=== PATIENT | male | born 1945 | race Caucasian/White ===

== ENCOUNTER → 2017-10-07 | Day surgery (SDC) | payer MEDICARE, OTHER ==
--- NOTE | 2017-10-06 14:52 | Diagnostic Imaging Report ---
PROCEDURE: Frontal and lateral views of the chest. COMPARISON: None. INDICATIONS: PRE-OPERATIVE CHEST X-RAY FOR KIDNEY SX (ESWL) FINDINGS: Lines/tubes: None. Lungs: The lungs are well inflated. There is no evidence of pneumonia or pulmonary edema. Linear subsegmental atelectasis at the lung bases. Pleura: There is no pleural effusion or pneumothorax. Heart and mediastinum: The cardiomediastinal silhouette is unremarkable. Bones: No acute bony abnormality. IMPRESSION: No evidence of pneumonia or pulmonary edema. Dictated by: BERNADINE MELARA M.D. on 10/06/2017 at 10:05 Electronically approved by: BERNADINE MELARA M.D. on 10/06/2017 at 10:05
[~2017-10-07] MED LIST: ASPIRIN81 MG; ATORVASTATIN CA10 MG PO; B COMPLEX1 EACH; CEFAZOLIN SOD 1 GM VIAL ONE; CEFTRIAXONE SOD 1 GM VIAL ONE; CLOPIDOGREL75 MG PO; D-20002000 UNIT PO; DEXAMETHASONE SOD PHOS INJ 4 MG/ML VIAL ONE; DITROPAN XL5 MG PO; FISH OIL 1,0001 EAC3; LIDOCAINE HCL 2% LOCAL INJ 5 ML SDV VIAL INJ ONE; LISINOPRIL10 MG PO; MEPERIDINE HCL INJ 50 MG/ML INJ ONE; MORPHINE SULFATE 2 MG/ML SYR ONE; NORVASC5 MG PO; ONDANSETRON HCL INJ 2 MG/ML VIAL ONE; PRILOSEC10 M1; PROPOFOL IV EMULSION 10 MG/ML 20 ML VIAL ONE; SEVOFLURANE INHAL SOLN 250 ML PEN BTL ONE; TYLENOL WITH C1 EACH PO; ZOFRAN ODT4 MG
--- NOTE | 2017-10-07 10:44 | Diagnostic Imaging Report ---
PROCEDURE:X-RAY ABDOMEN - KUB COMPARISON:CT abdomen and pelvis 09/26/2017. INDICATIONS:BILATERAL STONES, PRE OPERATIVE KUB SURGERY FINDINGS: Interval placement of a left internal ureteral stent. The proximal locking loop projects over the renal pelvis. The distal locking loop projects over the midline low pelvis. Stable position of 1 cm proximal left ureteral calculus and nonobstructing 4-5 mm left renal calculus relative to the comparison CT. Additionally, stable appearance of 1.1 cm nonobstructing right lower pole renal calculus. Multiple pelvic phleboliths. Bowel gas pattern is nonobstructive with gas and fecal material noted throughout the large bowel. Regional skeletal structures are intact with multilevel degenerative disc changes of the lumbar spine. Linear fibrotic change or subsegmental atelectasis in the right lung base. CONCLUSION: Stable position of bilateral renal and proximal left ureteral calculi status post left internal ureteral stent placement. Dictated by: Toni Alan M.D. on 10/07/2017 at 10:49 Electronically approved by: Toni Alan M.D. on 10/07/2017 at 10:49
--- NOTE | 2017-11-19 00:46 | Operative Report ---
DATE OF PROCEDURE: October 07, 2017 PREOPERATIVE DIAGNOSIS: Left ureterolithiasis. POSTOPERATIVE DIAGNOSIS: Left ureterolithiasis. PROCEDURES PERFORMED 1. Staged left-sided extracorporeal shockwave lithotripsy (separately performed for the left-sided ureteral stone). 2. Supervision of fluoroscopy. No radiologist present. ANESTHESIA: General. COMPLICATION: None. CLINICAL SUMMARY: Estuardo Azevedo is a 71-year-old man, who has an indwelling ureteral stent and residual stone burden. He was brought for the above procedure. He is aware of the risks of bleeding, infection, injury to adjacent structures, need for additional procedures, and elected to proceed. OPERATIVE PROCEDURE IN DETAIL: Informed consent was verified. Estuardo Azevedo was properly identified, taken to operating room, placed on the lithotripsy table in supine position. Anesthesia was uneventfully begun. The patient's left proximal 3 ureteral stones were localized with biplanar fluoroscopy, total of 3000 shocks were delivered with some degree of fragmentation noted. The patient was then uneventfully reversed from anesthesia, taken to recovery room in stable condition. There were no complications during the procedure. He tolerated the procedure well. Plans will be to return to the operating room to perform a left ureteroscopy with Holmium laser lithotripsy and change of the stent and as well as perform a right ESWL with right stent placement. Job#: [id number] CQ
== END | disposition home or self-care (01) ==
LOC: OR 07:29
PROVIDERS: ATTEND Urology
DX: N20.1 Calculus of ureter (principal); N13.30 Unspecified hydronephrosis; Z96.0 Presence of urogenital implants; I25.2 Old myocardial infarction; I25.10 Atherosclerotic heart disease of native coronary artery without angina pectoris; I10 Essential (primary) hypertension; Z95.1 Presence of aortocoronary bypass graft; Z01.818 Encounter for other preprocedural examination
CPT/HCPCS: 50590; 71046; 74018; J0696; J1100; J2001; J2175; J2270; J2405; J0690

== ENCOUNTER → 2017-10-21 | Outpatient (CLI) | payer MEDICARE, OTHER ==
[~2017-10-21] MED LIST changes: -CEFAZOLIN SOD 1 GM VIAL ONE; -CEFTRIAXONE SOD 1 GM VIAL ONE; -DEXAMETHASONE SOD PHOS INJ 4 MG/ML VIAL ONE; -LIDOCAINE HCL 2% LOCAL INJ 5 ML SDV VIAL INJ ONE; -MEPERIDINE HCL INJ 50 MG/ML INJ ONE; -MORPHINE SULFATE 2 MG/ML SYR ONE; -ONDANSETRON HCL INJ 2 MG/ML VIAL ONE; -PROPOFOL IV EMULSION 10 MG/ML 20 ML VIAL ONE; -SEVOFLURANE INHAL SOLN 250 ML PEN BTL ONE
--- NOTE | 2017-10-21 11:52 | Diagnostic Imaging Report ---
PROCEDURE:X-RAY ABDOMEN - KUB COMPARISON:KUB dated 10/07/17 INDICATIONS:LEFT SIDED PAIN, S/P RENAL STENT X 2 WEEKS AGO FINDINGS: Nonobstructive bowel gas pattern. No signs of pneumoperitoneum. Unchanged 1 cm calcification overlying right renal inferior pole. 6 mm calcification overlying left renal shadow, previously 4 mm. Unchanged left double-J nephroureteral stent in place. Calcification abutting the proximal to mid left ureteral stent measures 1.0 cm, previously 1 cm. Unchanged left pelvic phleboliths. No acute osseous abnormality. Limited visualized lung bases are unremarkable. CONCLUSION: Unchanged right nephrolithiasis. Slight interval increase in size of left renal and ureteral calculi when compared to prior KUB. Stable left nephroureteral stent in place. Dictated by: Sung Liriano M.D. on 10/21/2017 at 11:57 Electronically approved by: Sung Liriano M.D. on 10/21/2017 at 11:57
== END ==
LOC: RAD 11:09
PROVIDERS: ATTEND Urology
DX: N20.0 Calculus of kidney (principal)
CPT/HCPCS: 74018

== ENCOUNTER → 2017-10-30 | Day surgery (SDC) | payer MEDICARE, OTHER ==
[~2017-10-30] MED LIST changes: +CEFTRIAXONE SOD 1 GM VIAL ONE; +DESFLURANE 240 ML BTL INH ONE; +DEXAMETHASONE SOD PHOS INJ 4 MG/ML VIAL ONE; +FENTANYL CITRATE/PF 100MCG/2 ML INJ ONE; +IOPAMIDOL 300MG/ML 50ML INFUS..BTL IV ONE; +LIDOCAINE HCL 2% LOCAL INJ 5 ML SDV VIAL INJ ONE; +MIDAZOLAM HCL 2 MG/2 ML VIAL ONE; +ONDANSETRON HCL INJ 2 MG/ML VIAL ONE; +PROPOFOL IV EMULSION 10 MG/ML 20 ML VIAL ONE
--- NOTE | 2017-10-30 11:24 | Diagnostic Imaging Report ---
PROCEDURE:X-RAY ABDOMEN - KUB COMPARISON:KUB 10/21/2017 INDICATIONS:BILATERAL KIDNEY STONES FINDINGS: Bilateral renal and left ureteral stones appear unchanged, including a 1 cm calcification overlying the right lower pole kidney, 6 mm calcification overlying the left kidney, and 1 cm calcification overlying the left mid ureter. There is a left internal ureteral stent. Unchanged pelvic phleboliths. There is a non-obstructed bowel-gas pattern. There are no acute osseous abnormalities CONCLUSION: Bilateral renal and left ureteral stones appear unchanged. Stable left internal ureteral stent. Dictated by: BERNADINE MELARA M.D. on 10/30/2017 at 7:57 Electronically approved by: BERNADINE MLEARA M.D. on 10/30/2017 at 7:57
--- NOTE | 2017-12-22 11:29 | Operative Report ---
DATE OF PROCEDURE: October 30, 2017 PREOPERATIVE DIAGNOSES 1. Right nephrolithiasis. 2. Left ureterolithiasis. 3. Left nephrolithiasis. 4. Left indwelling ureteral stent. POSTOPERATIVE DIAGNOSES 1. Right nephrolithiasis. 2. Left ureterolithiasis. 3. Left nephrolithiasis. 4. Left indwelling ureteral stent. PROCEDURES PERFORMED: Note these are all staged procedures as part of multistage, multistep process of managing the patient's urolithiasis. 1. Right-sided extracorporeal shock-wave lithotripsy (separate procedure performed for the right nephrolithiasis). 2. Cystourethroscopy with complicated removal of left indwelling ureteral stent (separate procedure performed with separate scope for the diagnosis of stent). 3. Left semirigid ureteroscopy with holmium laser lithotripsy and placement of stent (separate procedure performed for the diagnosis of left ureterolithiasis done with a semirigid ureteroscope). 4. Left ureteropyeloscopy with holmium laser lithotripsy of left renal stone (separate procedure performed with a flexible ureteroscope for the left nephrolithiasis). 5. Radiological services for supervision and interpretation of ureteroscopy. 6. Interpretation of retrograde ureteropyelography. ANESTHESIA: General. COMPLICATIONS: None. CLINICAL SUMMARY: Estuardo Azevedo is a 71-year-old man with left ureteral stent and bilateral nephrolithiasis who is brought for another staged procedure. He is aware of the risks of bleeding, infection, injury to adjacent structures, need for additional procedures and elected to proceed. OPERATIVE PROCEDURE IN DETAIL: Informed consent was verified. Estuardo Azevedo was properly identified, taken to the operating room and placed on the lithotripsy table in the supine position. Anesthesia was uneventfully begun. The patient's right nephrolithiasis was localized with biplanar fluoroscopy. Total of 3000 shocks were delivered to the 10-mm stone with minimal amount of fragmentation noted. The patient was carefully and gently repositioned in the dorsal lithotomy position with all pressure points well padded. His genitalia were prepared and draped in the usual sterile fashion. The 22.5-Lux[place]bourgish cystourethroscope sheath with visual obturator in place was atraumatically inserted into the patient's urethra. It was guided down the unremarkable distal urethra, past a normal sphincteric region, through the prostate bed which was significant for trilobar prostatic hypertrophy with kissing lateral lobes and a median lobe that was visually obstructing. We entered the patient's bladder where panendoscopy revealed no suspicious mucosal lesions. There was a stent emerging from the left ureteral orifice. A guidewire was then placed alongside the stent and guided to the level of the patient's kidney. The stent was then grasped, completely removed and discarded. A semirigid ureteroscope was then placed alongside the guidewire up into the left ureter. We identified a large stone. Multiple stones were identified. Holmium laser lithotripsy was performed to pulverize all of these stones to smaller fragments. Multiple passes were then made with a basket to free all of the significantly sized stones from the left ureter. Over a secondary guidewire, a flexible ureteroscope was then placed. It was guided to the level of the patient's kidney. We encountered additional stones there. We performed holmium laser lithotripsy of the intrarenal stones to pulverize them into smaller fragments that should all be passable. With cystoscopic and fluoroscopic guidance, a left-sided indwelling ureteral stent was then placed. It was coiled in the patient's kidney as well as in the patient's bladder. The retaining suture was cut short. Interpretation of retrograde ureteropyelography: Contrast was instilled in a retrograde fashion. On the left-hand side, there was chronic fullness of the left-sided collecting system. Multiple filling defects corresponded to the stones that were treated. The stent was in good position, coiled in the patient's kidney as well as in the patient's bladder at the end of the case. The patient's bladder was then drained. The cystoscope was withdrawn. Digital rectal examination revealed a 35-g prostate with diffuse nodularity. There was a 5-mm nodule at the left medial apical region. In the future, we will need to follow up on this finding once we have managed the patient's urolithiasis to completion. Job#: [id number]
== END | disposition home or self-care (01) ==
LOC: OR 06:46
PROVIDERS: ATTEND Urology
DX: N20.0 Calculus of kidney (principal); N20.1 Calculus of ureter; Z46.6 Encounter for fitting and adjustment of urinary device; N40.1 Benign prostatic hyperplasia with lower urinary tract symptoms; N13.8 Other obstructive and reflux uropathy; N40.2 Nodular prostate without lower urinary tract symptoms; I25.10 Atherosclerotic heart disease of native coronary artery without angina pectoris; I25.2 Old myocardial infarction; I10 Essential (primary) hypertension; G47.33 Obstructive sleep apnea (adult) (pediatric); K21.9 Gastro-esophageal reflux disease without esophagitis; F41.9 Anxiety disorder, unspecified; Z79.82 Long term (current) use of aspirin; Z79.02 Long term (current) use of antithrombotics/antiplatelets; Z95.5 Presence of coronary angioplasty implant and graft
CPT/HCPCS: 50590; 52356; 74018; 88300; C1758; C2617; J0696; J1100; J2001; J2250; J2405; Q9967

== ENCOUNTER → 2017-11-20 | Day surgery (SDC) | payer MEDICARE, OTHER ==
[2017-11-19 10:45] LABS: BASOPHILS # (AUTO) 0.1 (0.0-0.1); BASOPHILS % 0.8 % (0.0-1.0); EOSINOPHILS # (AUTO) 0.8 (0.0-0.4); EOSINOPHILS % 7.7 % (0.0-6.0); HEMATOCRIT 42.4 % (38.2-49.6); HEMOGLOBIN 14.1 g/dL (14.0-18.0); LYMPHOCYTES # (AUTO) 1.9 (1.0-3.2); LYMPHOCYTES % 19.9 % (18.0-39.1); MEAN CORPUSCULAR HEMOGLOBIN 32.2 pg (28-32); MEAN CORPUSCULAR HGB CONC 33.3 g/dL (31-35); MEAN CORPUSCULAR VOLUME 96.8 fL (81-99); MONOCYTES # (AUTO) 0.8 (0.2-0.8); MONOCYTES % 8.4 % (4.4-11.3); NEUTROPHILS # (AUTO) 6.1 (2.1-6.9); PLATELET COUNT 221 x10e3/uL (140-360); RED BLOOD COUNT 4.38 x10e6/uL (4.3-5.7); RED CELL DISTRIBUTION WIDTH 12.3 % (11.7-14.4)
[~2017-11-20] MED LIST changes: +HYDROMORPHONE 2MG/ML 2 MG/ML ML ONE; -LIDOCAINE HCL 2% LOCAL INJ 5 ML SDV VIAL INJ ONE; +MORPHINE SULFATE 2 MG/ML SYR ONE; -PRILOSEC10 M1; +PRILOSEC10 M1 PO
--- NOTE | 2017-11-20 09:15 | Diagnostic Imaging Report ---
PROCEDURE:X-RAY ABDOMEN - KUB COMPARISON:KUB 10/30/17. INDICATIONS:PRE-OPERATIVE CHEST/ESWL FINDINGS: Bilateral renal stones are noted including a 1 cm calcification overlying the right lower pole kidney and 6 mm calcification overlying the left kidney. Bowel gas partially obscures visualization of the left kidney. A previously noted 1 cm calcification overlying the left mid ureter is no longer visualized. There is a left double J internal ureteral stent with similar appearance. Unchanged pelvic phleboliths. There is a non-obstructive bowel-gas pattern. There are no acute osseous abnormalities. CONCLUSION: Bilateral renal stones appear unchanged. Previously noted 1 cm calcification overlying the left mid ureter is no longer visualized. Similar appearance of left internal ureteral stent. Dictated by: BERNADINE MELARA M.D. on 11/20/2017 at 8:22 Electronically approved by: BERNADINE MELARA M.D. on 11/20/2017 at 8:22
[2017-11-20 12:25] VITALS: BP 146/91
--- NOTE | 2018-01-14 01:11 | Operative Report ---
DATE OF PROCEDURE: November 20, 2017 PREOPERATIVE DIAGNOSES 1. Right nephrolithiasis. 2. Left ureterolithiasis. 3. Left nephrolithiasis. POSTOPERATIVE DIAGNOSES 1. Right nephrolithiasis. 2. Left ureterolithiasis. 3. Left nephrolithiasis. OPERATIONS PERFORMED: Note these are all staged procedures as part of multistage, multistep process of managing the patient's urolithiasis. 1. Right-sided extracorporeal shock wave lithotripsy (separate procedure performed for the right nephrolithiasis). 2. Cystourethroscopy with complicated removal of right indwelling ureteral stent (separate procedure performed for the diagnosis of stent done with separate scope). 3. Left ureteroscopy with stone manipulation and extraction (separately procedure performed for the nephrolithiasis on the left hand side). 4. Left ureteroscopy with stone manipulation (separately procedure performed for the stone debris within the left ureter). 5. Urological services for supervision and interpretation of ureteroscopy. 6. Interpretation of retrograde ureteropyelography. ANESTHESIA: General. COMPLICATIONS: None. CLINICAL SUMMARY: Estuardo Azevedo is a 71-year-old man who underwent left-sided stone treatment and stent placement. Patient is brought to the operating room today to treat his right-sided stone , hopefully render him stone-free and stent-free on the left hand side. He is aware of the risks of bleeding, infection, injury to adjacent structures, need for additional procedures, and elected to proceed. OPERATIVE PROCEDURE IN DETAIL: Informed consent was verified. Estuardo Azevedo was properly identified, taken to the operating room, placed on the lithotripsy table in supine position. Anesthesia was uneventfully begun. The patient's right lower pole nephrolithiasis was localized on a biplanar fluoroscopy and a total of 3000 shocks were delivered with minimal fragmentation of this large stone. The patient was then carefully and gently re-positioned in the dorsal lithotomy position with all pressure points well padded. His genitalia were prepared and draped in the usual sterile fashion. The 22.5-[place] cystoscope sheath with a visual obturator in place was atraumatically inserted into the patient's urethra. It was guided down the unremarkable urethra through the normal sphincteric region, through the prostate bed, which was significant for trilobar prostatic hypertrophy with visual obstruction. We entered the patient's bladder which exhibited trabeculations and a stent emerging from the left ureteral orifice. A guidewire was then placed alongside the stent and guided at the level of the patient's kidney. The stent was then grasped, completely removed, and then discarded. Semirigid ureteroscopy was then performed. We passed the ureteroscope alongside the guidewire into the left ureter. We identified in the left ureter sand. This sand was irrigated to loosen it from the mucosa so that it can pass. There were no significantly sized stone fragments noted within the ureter. We then utilized the guidewire to bring the flexile urethroscope into the patient's kidney where panendoscopy revealed sand and some blood clots, but we evacuated these blood clots with irrigation via the ureteroscope. Once we got rid of all the blood clots from within the left kidney, careful panendoscopy revealed Yonatan plaques, but only fine sand was there. There were no significantly sized stones. We irrigated all the sand to loosen it and thus manipulated the kidney stones as well on the left hand side. We carefully re-examined the ureter and irrigated as we exited revealing that only fine sand remained, but no significantly sized stones. We drained the patient's bladder. Digital rectal examination revealed a 40-g prostate with nodularity in the midline from the apex to the base. There were no suspicious nodules that could be identified and the significance of such a finding is unclear at this time, but will be followed up on future followup once we get the patient's stones managed. The patient was then uneventfully reversed from anesthesia and taken to the recovery room in stable condition. There were no complications of the procedure. He tolerated the procedure well. Plans will be to bring the patient back to the operating room electively for another right ESWL. Interpretation of retrograde ureteropyelography: Contrast was instilled in retrograde fashion on the left hand side. There was chronic-appearing fullness of the upper collecting system. There were no obvious filling defects. Unobstructed drainage was observed fluoroscopically. Job#: [id number]
== END | disposition home or self-care (01) ==
LOC: OR 06:47
PROVIDERS: ATTEND Urology
DX: N20.0 Calculus of kidney (principal); N20.1 Calculus of ureter; Z46.6 Encounter for fitting and adjustment of urinary device; N40.1 Benign prostatic hyperplasia with lower urinary tract symptoms; N13.8 Other obstructive and reflux uropathy; N32.89 Other specified disorders of bladder; N28.89 Other specified disorders of kidney and ureter; G47.33 Obstructive sleep apnea (adult) (pediatric); K21.9 Gastro-esophageal reflux disease without esophagitis; I10 Essential (primary) hypertension; I25.10 Atherosclerotic heart disease of native coronary artery without angina pectoris; I25.2 Old myocardial infarction; Z01.812 Encounter for preprocedural laboratory examination; Z79.82 Long term (current) use of aspirin
CPT/HCPCS: 36415; 50590; 52352; 74018; 85025; J0696; J1100; J1170; J2250; J2270; J2405; Q9967

== ENCOUNTER 2017-12-25 07:43 | Inpatient (IN) | payer MEDICARE, OTHER ==
[2017-12-24 10:51] LABS: BASOPHILS # (AUTO) 0.1 (0.0-0.1); BASOPHILS % 0.7 % (0.0-1.0); EOSINOPHILS # (AUTO) 0.5 (0.0-0.4); HEMATOCRIT 43.2 % (38.2-49.6); HEMOGLOBIN 14.8 g/dL (14.0-18.0); LYMPHOCYTES # (AUTO) 1.8 (1.0-3.2); LYMPHOCYTES % 18.4 % (18.0-39.1); MEAN CORPUSCULAR HEMOGLOBIN 32.2 pg (28-32); MEAN CORPUSCULAR HGB CONC 34.3 g/dL (31-35); MEAN CORPUSCULAR VOLUME 93.9 fL (81-99); MONOCYTES # (AUTO) 0.9 (0.2-0.8); NEUTROPHILS # (AUTO) 6.6 (2.1-6.9); NEUTROPHILS % 66.7 % (38.7-80.0); PLATELET COUNT 223 x10e3/uL (140-360); RED CELL DISTRIBUTION WIDTH 11.9 % (11.7-14.4)
[~2017-12-25] VITALS: Ht 182.9 cm; Wt 110.7 kg
[~2017-12-25 07:43] MED LIST changes: -CEFTRIAXONE SOD 1 GM VIAL ONE; -DESFLURANE 240 ML BTL INH ONE; -DEXAMETHASONE SOD PHOS INJ 4 MG/ML VIAL ONE; -FENTANYL CITRATE/PF 100MCG/2 ML INJ ONE; -HYDROMORPHONE 2MG/ML 2 MG/ML ML ONE; -IOPAMIDOL 300MG/ML 50ML INFUS..BTL IV ONE; -MIDAZOLAM HCL 2 MG/2 ML VIAL ONE; -MORPHINE SULFATE 2 MG/ML SYR ONE; -ONDANSETRON HCL INJ 2 MG/ML VIAL ONE; -PROPOFOL IV EMULSION 10 MG/ML 20 ML VIAL ONE
[2017-12-25] MEDS ORDERED: CEFTRIAXONE SOD 1 GM VIAL ONE (08:37)
[2017-12-25] MEDS ORDERED: FENTANYL CITRATE/PF 100MCG/2 ML INJ ONE ×2 (11:07→17:49)
[2017-12-25] MEDS ORDERED: MORPHINE SULFATE 2 MG/ML SYR ONE ×4 (11:24→17:52)
[2017-12-25] MEDS ORDERED: HYDROMORPHONE 2MG/ML 2 MG/ML ML ONE ×3 (11:32→19:11)
[2017-12-25] MEDS ORDERED: KETOROLAC TROMETHAMINE 30 MG/ML VIAL ONE ×2 (12:08→12:20)
[2017-12-25] MEDS ORDERED: ONDANSETRON HCL INJ 2 MG/ML VIAL ONE (12:35)
--- NOTE | 2017-12-25 12:37 | Diagnostic Imaging Report ---
PROCEDURE:X-RAY ABDOMEN - KUB COMPARISON:KUB 11/20/2017. INDICATIONS:PRE OPERATIVE KUB FOR KIDNEY STONES FINDINGS: Bilateral renal stones are unchanged including a 1.1 cm calcification overlying the right lower pole kidney and 6 mm calcification overlying the left kidney. Unchanged pelvic phleboliths. Interval removal of left internal ureteral stent. There is a nonobstructive bowel-gas pattern. There are no acute osseous abnormalities. CONCLUSION: Bilateral renal stones appear unchanged. Interval removal of left internal ureteral stent. Dictated by: BERNADINE MELARA M.D. on 12/25/2017 at 9:11 Electronically approved by: BERNADINE MELARA M.D. on 12/25/2017 at 9:11
[2017-12-25] MEDS ORDERED: ACETAMINOPHEN/CODEINE 300MG - 30MG TAB ONE (17:39)
[2017-12-25] MEDS ORDERED: MIDAZOLAM HCL 2 MG/2 ML VIAL ONE (17:49)
[2017-12-25] MEDS ORDERED: PROMETHAZINE HCL (IM) 25 MG/ML VIAL ONE (17:52)
[2017-12-25] MEDS ORDERED: HYDROMORPHONE 0.2MG/ML-SOD CHL 30ML PCA SYRINGE IV PRN ×2 (18:45→20:00)
[2017-12-25] MEDS ORDERED: NALOXONE HCL INJ 0.4 MG/ML AMP IV PRN (18:45)
[2017-12-25] MEDS ORDERED: SODIUM CHLORIDE 0.9% 1000ML 1,000 ML ONE (19:24)
[2017-12-25] MEDS ORDERED: HYDROMORPHONE 0.2MG/ML-SOD CHL 30ML PCA SYRINGE IV ONE (20:11)
[2017-12-25 20:30] VITALS: BP 107/89
[2017-12-25 20:45] VITALS: BP 132/82
[2017-12-25] MEDS: SODIUM CHLORIDE 0.9% 1000ML 1,000 ML IV SCH (21:12)
[2017-12-25 21:15] LABS: BASOPHILS % 0.1 % (0.0-1.0); HEMATOCRIT 34.8 % (38.2-49.6); HEMOGLOBIN 11.8 g/dL (14.0-18.0); LYMPHOCYTES # (AUTO) 0.6 (1.0-3.2); LYMPHOCYTES % 3.7 % (18.0-39.1); MEAN CORPUSCULAR HGB CONC 33.9 g/dL (31-35); MEAN CORPUSCULAR VOLUME 97.2 fL (81-99); MONOCYTES # (AUTO) 0.7 (0.2-0.8); MONOCYTES % 4.1 % (4.4-11.3); NEUTROPHILS # (AUTO) 16.1 (2.1-6.9); NEUTROPHILS % 91.8 % (38.7-80.0); PLATELET COUNT 202 x10e3/uL (140-360); RED BLOOD COUNT 3.58 x10e6/uL (4.3-5.7); RED CELL DISTRIBUTION WIDTH 11.9 % (11.7-14.4)
[2017-12-25 21:35] LABS: ANION GAP 14.8 mmol/L (8-16); CALCIUM 9.7 mg/dL (8.4-10.2); CREATININE, SERUM 1.5 mg/dL (0.72-1.25); POTASSIUM 4.8 mmol/L (3.5-5.1)
[2017-12-25 23:15] VITALS: BP 141/74
[2017-12-26] VITALS (9 sets, daily range): BP systolic 109–136; BP diastolic 69–83
[2017-12-26 05:32] LABS: BASOPHILS % 0.2 % (0.0-1.0); HEMATOCRIT 29.4 % (38.2-49.6); HEMOGLOBIN 9.7 g/dL (14.0-18.0); LYMPHOCYTES # (AUTO) 1.2 (1.0-3.2); LYMPHOCYTES % 7.4 % (18.0-39.1); MEAN CORPUSCULAR HEMOGLOBIN 32.6 pg (28-32); MEAN CORPUSCULAR VOLUME 98.7 fL (81-99); MONOCYTES # (AUTO) 1.3 (0.2-0.8); MONOCYTES % 7.9 % (4.4-11.3); NEUTROPHILS # (AUTO) 14.1 (2.1-6.9); NEUTROPHILS % 83.8 % (38.7-80.0); PLATELET COUNT 213 x10e3/uL (140-360); RED BLOOD COUNT 2.98 x10e6/uL (4.3-5.7)
[2017-12-26 05:54] LABS: ANION GAP 12.2 mmol/L (8-16); CALCIUM 9.8 mg/dL (8.4-10.2); CREATININE, SERUM 1.74 mg/dL (0.72-1.25); POTASSIUM 5.2 mmol/L (3.5-5.1)
[2017-12-26] MEDS ORDERED: ONDANSETRON HCL INJ 2 MG/ML VIAL IV PRN (07:30)
[2017-12-26] MEDS: SODIUM CHLORIDE 0.9% 1000ML 1,000 ML IV SCH ×2 (08:23→15:14)
[2017-12-26] MEDS ORDERED: CHLORPROMAZINE HCL 25 MG TAB PO PRN (10:30)
[2017-12-26] MEDS ORDERED: BISACODYL 10 MG SUPP PR PRN (10:30)
[2017-12-26] MEDS ORDERED: CEFTRIAXONE SOD 1 GM/NS 50 ML 50 ML IV SCH (10:30)
[2017-12-26 10:45] LABS: CLARITY,URINE HAZY (CLEAR); COLOR,URINE YELLOW (YELLOW); LEUKOCYTE ESTERASE ,URINE NEGATIVE (NEGATIVE); NITRITE,URINE NEGATIVE (NEGATIVE); PROTEIN,URINE DIPSTICK 2+ (NEGATIVE)
[2017-12-26 10:46] LABS: BILIRUBIN,URINE NEGATIVE (NEGATIVE); KETONES,URINE NEGATIVE (NEGATIVE); URINE UROBILINOGEN 0.2 mg/dL (0.2 - 1)
[2017-12-26] MEDS: SENNOSIDES 8.6 MG TAB PO SCH ×2 (10:57→17:05)
[2017-12-26] MEDS: AMLODIPINE BESYLATE 5 MG TAB PO SCH (10:57)
[2017-12-26] MEDS: CEFTRIAXONE SOD 1 GM VIAL IV SCH ×2 (10:57→21:35)
[2017-12-26 11:06] LABS: BACTERIA,URINE FEW /HPF; RBC,URINE >50 /HPF (0-5); WBC,URINE (MAN) 21-50 /HPF (0-5)
[2017-12-26 11:07] LABS: EPITHELIAL CELLS,URINE FEW /LPF; MUCUS,URINE FEW (RARE)
--- NOTE | 2017-12-26 11:59 | History and Physical ---
CHIEF COMPLAINT: Intractable lower back pain and flank pain after lithotripsy. HISTORY: Patient is a 72-year-old male with multiple stones, a chronic problem for sometime. The patient has left ureteral stent as well. The patient underwent lithotripsy with the ESWL. After the procedure was done, the patient complained of increasing pain intractably and the patient was placed in observation. He had lithotripsy on the right kidney stone. The patient was stable. He is on [employer] pump at this time. He is still having some pain to the right flank area. Over the night, the patient was not able to urinate. He has some obstruction; therefore, a Larios catheter was placed. His white cell count is elevated, WBC of 17,500. The patient is otherwise stable at this time. PAST MEDICAL HISTORY 1. Kidney stone bilaterally, worse on the right. 2. The patient is now status post ESWL stone management. 3. Left ureteral stent removal. 4. Hypertension. 5. Dyslipidemia. 6. Osteoarthritis. 7. Reflux history. 8. Coronary artery disease with no PCI or stent. SOCIAL HISTORY: The patient does not smoke. He is a social drinker. ALLERGIES: NO KNOWN ALLERGIES. HOME MEDICATIONS: He was taking Lipitor, Plavix, lisinopril, omeprazole, vitamin D, and Norvasc. PHYSICAL EXAMINATION VITAL SIGNS: Temperature is 97, blood pressure 124/73, pulse rate is 77, and respirations 18. GENERAL: The patient is not in acute distress. He is awake. HEENT: Normocephalic and atraumatic. Sclerae are anicteric. NECK: Supple grossly. PULMONARY: Clear. CARDIOVASCULAR: Regular rate and rhythm. ABDOMEN: Soft, otherwise unremarkable. EXTREMITIES: No cyanosis or edema. NEUROLOGIC: No focal deficit. Larios in place. LABORATORY: Sodium 141, potassium 5.2, chloride 110, bicarb 24, BUN 27, and creatinine 1.7. Glucose 132. WBC is 16.8, hemoglobin 9.7, hematocrit 29.4, and platelet 213,000. IMPRESSION 1. Postoperative leukocytosis. 2. Status post ESWL, stone management to the right kidney stone. 3. Status post left urethral stent removal. PLAN: We will start the patient on Rocephin 1 g q.12. Continue with the pain management. Stool softener with stool management. Home medications resumed. IV fluids for now. We will see how the patient does. We will repeat lab work in the morning to monitor the white cell count elevation. The white cell count elevation could be secondary to postoperative stress reactive versus infection. We will obtain a urinalysis with culture as well. Job#: [id number] DANA
[2017-12-26] MEDS ORDERED: BISACODYL 10 MG SUPP PR NR ×2 (12:45→13:15)
--- NOTE | 2017-12-26 15:30 | Diagnostic Imaging Report ---
EXAM: CT Abdomen and Pelvis WITHOUT contrast INDICATION: \S\abdominal pain s/p eswl \[id number] \S\[id number] COMPARISON: CT 09/26/2017 TECHNIQUE: Abdomen and pelvis were scanned utilizing a multidetector helical scanner from the lung base to the pubic symphysis without administration of IV contrast. Absence of intravenous contrast decreases sensitivity for detection of focal lesions and vascular pathology. Coronal and sagittal reformations were obtained. Routine protocol was performed. IV CONTRAST: None ORAL CONTRAST: Water COMPLICATIONS: None RADIATION DOSE: Total DLP: 919.8 mGy*cm Estimated effective dose: (DLP x 0.015 x size factor) mSv CTDIvol has been reviewed. It is below the limits set by the Radiation Protocol Committee (RPC). FINDINGS: LINES and TUBES: Larios catheter within the bladder. LOWER THORAX: Small right pleural effusion. Dependent atelectasis bilaterally. Coronary artery calcifications. HEPATOBILIARY: No focal hepatic lesions. No biliary ductal dilation. GALLBLADDER: No radio-opaque stones or sludge. No wall thickening. SPLEEN: No splenomegaly. PANCREAS: Atrophic. ADRENALS: No adrenal nodules KIDNEYS/URETERS: No hydronephrosis. Stable 0.9 cm hyperattenuating lesion in the superior pole of the left kidney measuring 50 HU. 1.5 cm left superior pole cyst. Stable left inferior pole 1.1 cm stone. Interval passage of the left renal calculus which is no longer visualized. Previous small or nonobstructing calculus in the left superior pole is no longer visualized. Stable 1.3 cm stone in the right inferior pole and 8 mm calculus in the right superior pole. Large right subscapular hematoma with compression of the right kidney with extension of hemorrhage into the right retroperitoneum, and to a lesser extent in the left retroperitoneum and pelvis. The subcapsular hematoma measures approximately 15.6 x 10.7 x 4.8 cm and more focal extracapsular component measuring approximately 7.6 x 8.7 x 4.5 cm. GI TRACT: No abnormal distention, wall thickening, or evidence of bowel obstruction. Appendix is normal. PELVIC ORGANS/BLADDER: Larios catheter within the collapsed air-containing bladder. LYMPH NODES: No lymphadenopathy. VESSELS: There is mild atherosclerotic disease in the aorta and major arterial branches. PERITONEUM / RETROPERITONEUM: No free air. Hemorrhage as above. BONES: Unremarkable. SOFT TISSUES: Unremarkable. IMPRESSION: 1. Status post lithotripsy of the right kidney with internal development of large right subcapsular hematoma with extra capsular component largely in the right retroperitoneum, partially extending into the left retroperitoneum and pelvis. 2. Decreased stone burden in the left kidney and interval passage of left ureteral calculus. 3. Stable indeterminate lesion in the left kidney. Findings discussed with Dr. Telles on 12/26/2017 at 3:[address] Meléndez on 12/26/2017 at 3:25 PM. Signed by: DR. Sivakumar Gonzalez MD on 12/26/2017 3:27 PM
[2017-12-26 15:57] LABS: BASOPHILS # (AUTO) 0.1 (0.0-0.1); BASOPHILS % 0.3 % (0.0-1.0); EOSINOPHILS % 0.2 % (0.0-6.0); HEMATOCRIT 27.3 % (38.2-49.6); LYMPHOCYTES # (AUTO) 1.6 (1.0-3.2); LYMPHOCYTES % 8.6 % (18.0-39.1); MEAN CORPUSCULAR HEMOGLOBIN 32.5 pg (28-32); MEAN CORPUSCULAR VOLUME 98.6 fL (81-99); MONOCYTES # (AUTO) 1.9 (0.2-0.8); MONOCYTES % 10.4 % (4.4-11.3); NEUTROPHILS # (AUTO) 14.5 (2.1-6.9); NEUTROPHILS % 80.1 % (38.7-80.0); PLATELET COUNT 217 x10e3/uL (140-360); RED BLOOD COUNT 2.77 x10e6/uL (4.3-5.7); RED CELL DISTRIBUTION WIDTH 12.3 % (11.7-14.4)
[2017-12-26 16:09] LABS: INR 1.05; PROTHROMBIN TIME 14.7 seconds (11.9-14.5)
[2017-12-26 16:10] LABS: PARTIAL THROMBOPLASTIN TIME 27.6 seconds (23.8-35.5)
[2017-12-26] MEDS: OXYBUTYNIN CHLORIDE XL 5 MG TAB PO SCH (17:05)
[2017-12-26 17:10] LABS: LYMPHOCYTES % (MANUAL) 11 % (19-48); MONOCYTES % (MANUAL) 11 % (3.4-9.0); NEUTROPHILS % (MANUAL) 78 % (40-74)
[2017-12-26 17:11] LABS: PLATELET ESTIMATE ADEQUATE; PLATELET MORPHOLOGY COMMENT NORMAL; RBC MORPHOLOGY COMMENT NORMAL
[2017-12-26] MEDS: ATORVASTATIN 10 MG TAB PO SCH (21:35)
[2017-12-27] VITALS (27 sets, daily range): BP systolic 108–163; BP diastolic 57–91
[2017-12-27 00:26] LABS: HEMOGLOBIN 7.6 g/dL (14.0-18.0)
[2017-12-27] MEDS ORDERED: SODIUM CHLORIDE 0.9% 250ML 250 ML IV ONE (01:00)
[2017-12-27] MEDS ORDERED: FUROSEMIDE INJ 10 MG/ML 2 ML VIAL IV PRN (01:04)
[2017-12-27] MEDS ORDERED: SODIUM CHLORIDE 0.9% 250ML 250 ML ONE ×3 (02:21→14:17)
[2017-12-27 05:09] LABS: BASOPHILS % 0.3 % (0.0-1.0); EOSINOPHILS # (AUTO) 0.3 (0.0-0.4); EOSINOPHILS % 2.2 % (0.0-6.0); HEMATOCRIT 21.7 % (38.2-49.6); HEMOGLOBIN 7.2 g/dL (14.0-18.0); LYMPHOCYTES # (AUTO) 1.8 (1.0-3.2); LYMPHOCYTES % 14.9 % (18.0-39.1); MEAN CORPUSCULAR HEMOGLOBIN 32.9 pg (28-32); MEAN CORPUSCULAR HGB CONC 33.2 g/dL (31-35); MEAN CORPUSCULAR VOLUME 99.1 fL (81-99); MONOCYTES # (AUTO) 1.5 (0.2-0.8); MONOCYTES % 12.6 % (4.4-11.3); NEUTROPHILS # (AUTO) 8.4 (2.1-6.9); NEUTROPHILS % 69.5 % (38.7-80.0); PLATELET COUNT 182 x10e3/uL (140-360); RED BLOOD COUNT 2.19 x10e6/uL (4.3-5.7); RED CELL DISTRIBUTION WIDTH 12.6 % (11.7-14.4)
[2017-12-27 05:57] LABS: ANION GAP 10.5 mmol/L (8-16); CALCIUM 9.6 mg/dL (8.4-10.2); CREATININE, SERUM 1.8 mg/dL (0.72-1.25); POTASSIUM 4.5 mmol/L (3.5-5.1)
[2017-12-27 07:43] LABS: EOSINOPHILS % (MANUAL) 1 % (0-7); LYMPHOCYTES % (MANUAL) 12 % (19-48); MONOCYTES % (MANUAL) 12 % (3.4-9.0); NEUTROPHILS % (MANUAL) 75 % (40-74); PLATELET ESTIMATE ADEQUATE; PLATELET MORPHOLOGY COMMENT NORMAL; RBC MORPHOLOGY COMMENT NORMAL
[2017-12-27] MEDS: PANTOPRAZOLE SOD 40 MG TABEC PO SCH ×3 (08:25→22:17)
[2017-12-27] MEDS: SENNOSIDES 8.6 MG TAB PO SCH ×2 (08:52→17:26)
[2017-12-27] MEDS: AMLODIPINE BESYLATE 5 MG TAB PO SCH (08:52)
[2017-12-27] MEDS: OXYBUTYNIN CHLORIDE XL 5 MG TAB PO SCH ×2 (08:52→17:26)
[2017-12-27] MEDS: CEFTRIAXONE SOD 1 GM VIAL IV SCH ×3 (08:52→22:16)
[2017-12-27 10:05] LABS: INR 1.05; PROTHROMBIN TIME 14.7 seconds (11.9-14.5)
[2017-12-27 10:06] LABS: PARTIAL THROMBOPLASTIN TIME 23.6 seconds (23.8-35.5)
[2017-12-27] MEDS ORDERED: FUROSEMIDE INJ 10 MG/ML 4 ML VIAL ONE (10:38)
[2017-12-27] MEDS ORDERED: FUROSEMIDE INJ 10 MG/ML 2 ML VIAL IV NR ×2 (10:45→19:30)
[2017-12-27 13:13] LABS: BASOPHILS # (AUTO) 0.1 (0.0-0.1); BASOPHILS % 0.5 % (0.0-1.0); EOSINOPHILS # (AUTO) 0.4 (0.0-0.4); EOSINOPHILS % 2.8 % (0.0-6.0); HEMATOCRIT 25.2 % (38.2-49.6); HEMOGLOBIN 8.4 g/dL (14.0-18.0); LYMPHOCYTES % 16.1 % (18.0-39.1); MEAN CORPUSCULAR HEMOGLOBIN 32.4 pg (28-32); MEAN CORPUSCULAR HGB CONC 33.3 g/dL (31-35); MEAN CORPUSCULAR VOLUME 97.3 fL (81-99); MONOCYTES # (AUTO) 1.3 (0.2-0.8); MONOCYTES % 10.7 % (4.4-11.3); NEUTROPHILS # (AUTO) 8.6 (2.1-6.9); NEUTROPHILS % 69.6 % (38.7-80.0); PLATELET COUNT 158 x10e3/uL (140-360); RED BLOOD COUNT 2.59 x10e6/uL (4.3-5.7); RED CELL DISTRIBUTION WIDTH 12.7 % (11.7-14.4)
[2017-12-27] MEDS ORDERED: ACETAMINOPHEN 325 MG TAB PO PRN (14:00)
[2017-12-27] MEDS: ATORVASTATIN 10 MG TAB PO SCH ×2 (20:27→22:17)
[2017-12-28] VITALS (14 sets, daily range): BP systolic 138–161; BP diastolic 71–92
[2017-12-28 05:24] LABS: BASOPHILS # (AUTO) 0.1 (0.0-0.1); BASOPHILS % 0.6 % (0.0-1.0); EOSINOPHILS # (AUTO) 0.4 (0.0-0.4); EOSINOPHILS % 3.4 % (0.0-6.0); HEMATOCRIT 25.8 % (38.2-49.6); HEMOGLOBIN 8.8 g/dL (14.0-18.0); LYMPHOCYTES # (AUTO) 1.5 (1.0-3.2); LYMPHOCYTES % 13.1 % (18.0-39.1); MEAN CORPUSCULAR HEMOGLOBIN 32.2 pg (28-32); MEAN CORPUSCULAR HGB CONC 34.1 g/dL (31-35); MEAN CORPUSCULAR VOLUME 94.5 fL (81-99); MONOCYTES # (AUTO) 1.4 (0.2-0.8); MONOCYTES % 11.8 % (4.4-11.3); NEUTROPHILS # (AUTO) 8.3 (2.1-6.9); NEUTROPHILS % 70.8 % (38.7-80.0); PLATELET COUNT 210 x10e3/uL (140-360); RED BLOOD COUNT 2.73 x10e6/uL (4.3-5.7); RED CELL DISTRIBUTION WIDTH 13.3 % (11.7-14.4)
[2017-12-28 05:49] LABS: ANION GAP 10.4 mmol/L (8-16); CALCIUM 9.1 mg/dL (8.4-10.2); CREATININE, SERUM 1.67 mg/dL (0.72-1.25); POTASSIUM 3.4 mmol/L (3.5-5.1)
[2017-12-28] MEDS ORDERED: TAMSULOSIN HCL 0.4 MG CAP PO SCH ×2 (08:45→21:00)
[2017-12-28] MEDS ORDERED: TAMSULOSIN HCL 0.4 MG CAP PO ONE (09:00)
[2017-12-28] MEDS: CEFTRIAXONE SOD 1 GM VIAL IV SCH (09:06)
[2017-12-28] MEDS: SENNOSIDES 8.6 MG TAB PO SCH ×2 (09:06→16:14)
[2017-12-28] MEDS: AMLODIPINE BESYLATE 5 MG TAB PO SCH (09:06)
[2017-12-28] MEDS ORDERED: PROPOFOL IV EMULSION 10 MG/ML 20 ML VIAL ONE (18:41)
[2017-12-28] MEDS ORDERED: SEVOFLURANE INHAL SOLN 250 ML PEN BTL ONE (18:41)
[2017-12-28] MEDS ORDERED: DEXAMETHASONE SOD PHOS INJ 4 MG/ML VIAL ONE (18:41)
[2017-12-28] MEDS ORDERED: LIDOCAINE HCL 2% LOCAL INJ 5 ML SDV VIAL INJ ONE (18:41)
[2017-12-28] MEDS ORDERED: ONDANSETRON HCL INJ 2 MG/ML VIAL ONE (18:41)
[2017-12-28] MEDS: ATORVASTATIN 10 MG TAB PO SCH (20:18)
[2017-12-28] MEDS: PANTOPRAZOLE SOD 40 MG TABEC PO SCH (20:18)
[2017-12-28] MEDS ORDERED: SODIUM CHLORIDE 0.9% 250ML 250 ML ONE (23:10)
[2017-12-29 04:28] VITALS: BP 152/90
[2017-12-29 06:26] LABS: CALCIUM 9.7 mg/dL (8.4-10.2); CREATININE, SERUM 1.41 mg/dL (0.72-1.25); POTASSIUM 4.1 mmol/L (3.5-5.1)
[2017-12-29 07:56] VITALS: BP 155/91
[2017-12-29] MEDS ORDERED: ACETAMINOPHEN/CODEINE 300MG - 30MG TAB PO PRN (08:15)
[2017-12-29 08:25] LABS: ANION GAP 19.1 mmol/L (8-16)
[2017-12-29] MEDS: AMLODIPINE BESYLATE 5 MG TAB PO SCH (08:30)
[2017-12-29] MEDS: SENNOSIDES 8.6 MG TAB PO SCH (08:30)
[2017-12-29] MEDS: CEFTRIAXONE SOD 1 GM VIAL IV SCH (08:30)
[2017-12-29 09:27] LABS: BASOPHILS # (AUTO) 0.1 (0.0-0.1); BASOPHILS % 0.5 % (0.0-1.0); EOSINOPHILS # (AUTO) 0.5 (0.0-0.4); EOSINOPHILS % 4.4 % (0.0-6.0); HEMATOCRIT 27.6 % (38.2-49.6); HEMOGLOBIN 9.3 g/dL (14.0-18.0); LYMPHOCYTES # (AUTO) 1.3 (1.0-3.2); LYMPHOCYTES % 12.1 % (18.0-39.1); MEAN CORPUSCULAR HEMOGLOBIN 32.4 pg (28-32); MEAN CORPUSCULAR HGB CONC 33.7 g/dL (31-35); MEAN CORPUSCULAR VOLUME 96.2 fL (81-99); MONOCYTES # (AUTO) 1.2 (0.2-0.8); MONOCYTES % 11.7 % (4.4-11.3); NEUTROPHILS # (AUTO) 7.3 (2.1-6.9); NEUTROPHILS % 70.9 % (38.7-80.0); PLATELET COUNT 244 x10e3/uL (140-360); RED BLOOD COUNT 2.87 x10e6/uL (4.3-5.7); RED CELL DISTRIBUTION WIDTH 12.9 % (11.7-14.4)
[2017-12-29 11:45] VITALS: BP 162/91
--- NOTE | 2017-12-29 12:53 | Consultation ---
DATE OF CONSULTATION: December 27, 2017 CONSULTATION TO: Dr. Clayton Telles. HPI: Mr. Azevedo is a 72-year-old white male who has been referred to me for post-lithotripsy retroperitoneal hematoma, drop in the blood count, excruciating pain in the right flank. HISTORY OF PAST ILLNESSES: History of renal stones, history of lithotripsy, history of left ureteral stent removal, history of hypertension, history of hyperlipidemia, history of coronary artery disease. The patient claims that he has been on Plavix. The patient claims that he did not have any stenting, even though the history and physical by the attending claims that he had stenting. SOCIAL HISTORY: Noncontributory. FAMILY HISTORY: Noncontributory. ALLERGIES: REPORTED NONE. MEDICATIONS: At this time; 1. Ondansetron. 2. Amlodipine. 3. Senokot. 4. Bisacodyl. 5. Chlorpromazine. 6. Oxybutynin. 7. Hydromorphone. 8. Ceftriaxone. 9. Protonix. 10. Lasix. REVIEW OF SYSTEMS HEENT: Normal. CARDIAC: History of hypertension, history of coronary artery disease. RESPIRATORY: Normal. GI: Normal. : Multiple episodes of renal stones and lithotripsy. PHYSICAL EXAMINATION GENERAL: A moderately built male, in distress because of pain. NECK: No palpable adenopathy. HEART: Within normal limits. LUNGS: Clear. ABDOMEN: Obese. RECTAL: Deferred. CENTRAL NERVOUS SYSTEM: Essentially normal. EXTREMITIES: Essentially normal. LABS: Today show a hemoglobin of 7.2, hematocrit 21.7, white count 12,000, platelets of 182,000. On 12/26/2017, his hemoglobin was 9.7. On 12/26/2017, sodium 141, potassium 5.2, chloride 110, CO2 of 24, BUN 27, creatinine 1.7. The BUN and creatinine are high today at 35 and 1.0. Potassium; however, is 4.5. A CAT scan of the abdomen does show the patient to have right retroperitoneal hematoma. IMPRESSION 1. History of renal stones. 2. History of lithotripsy. 3. History of left ureteral stent removal. 4. History of hypertension. 5. History of hyperlipidemia. 6. History of coronary artery disease. 7. Anemia of blood loss. 8. Leukocytosis. 9. Chronic renal failure. 10. Urinary tract infection with multiple bacteria in the urine. 11. Post-lithotripsy hematuria. PLAN, COMMENTS, AND SUGGESTIONS: The patient was on Plavix. The Plavix was taken off 5 days prior to the lithotripsy. The half-life is 10 days and the patient should be taken off between 5 to 7 days. I have reviewed this patient's PTT, which is normal at 23.6, INR is normal at 1.05. Fibrinogen level is normal more than 200. The bleed is because of the bleeding mechanism and not a clotting mechanism, which is attributed to the Plavix. I will give him platelet transfusion as Plavix knocks out the platelet function. I will confine myself to the hematology only. The patient's hemoglobin had gone up to 8.8 and the patient is being discharged. Thank you very much for allowing me to participate in the management of this patient during this hospitalization. I have not given him any followup appointment; however, I will be more than happy to follow this patient as outpatient if the attending would call and make an appointment. Job#: [id number] CAMMIE
--- NOTE | 2018-02-24 22:47 | Operative Report ---
DATE OF PROCEDURE: December 25, 2017 PREOPERATIVE DIAGNOSIS: Right nephrolithiasis. POSTOPERATIVE DIAGNOSIS: Right nephrolithiasis. OPERATIONS PERFORMED 1. Staged right-sided extracorporeal shockwave lithotripsy. 2. Supervision of fluoroscopy. No radiologist present. ANESTHESIA: General. COMPLICATIONS: None seen immediately. CLINICAL SUMMARY: Estuardo Azevedo is a 72-year-old man with bilateral nephrolithiasis. He was brought for staged right-sided external shock wave lithotripsy. He is aware of the risks of bleeding infection injury to adjacent structures need for additional procedures and elected to proceed. OPERATIVE PROCEDURE IN DETAIL: Informed consent was verified. Estuardo Azevedo was properly identified, taken to the operating room, placed on the lithotripsy table in supine position. Anesthesia was uneventfully begun. The patient's right 9-mm lower caliceal stone was localized with biplanar fluoroscopy. A total of 3000 shocks were delivered with some degree of fragmentation noted. The patient was then uneventfully reversed from anesthesia and taken to recovery room in stable condition. There were no complications to the procedure. The patient tolerated the procedure well. Plans will be to proceed with routine postoperative care and a staged additional lithotripsy may be warranted. Expected additional stone procedures will be needed in the future. Job#: [id number] CQ
== END 2017-12-29 14:48 | disposition home or self-care (01) | DRG 920 ==
LOC: OR 07:43 → ERHOLD 21:02 → IMCU 21:07 → OBSVTOIN 12-26 13:35 → MED/SURG2 12-26 14:21 → IMCU 12-26 15:43
PROVIDERS: ADMIT Internal Medicine; ATTEND Internal Medicine
PROC: 0TF3XZZ Fragmentation in Right Kidney Pelvis, External Approach (ICD-10-PCS; principal; 2017-12-25 10:00)
PROC: 30233N1 Transfusion of Nonautologous Red Blood Cells into Peripheral Vein, Percutaneous Approach (ICD-10-PCS; 2017-12-27)
PROC: 6A550Z2 Pheresis of Platelets, Single (ICD-10-PCS; 2017-12-27)
DX: N99.840 Postprocedural hematoma of a genitourinary system organ or structure following a genitourinary system procedure (principal); D62 Acute posthemorrhagic anemia; N39.0 Urinary tract infection, site not specified; K91.871 Postprocedural hematoma of a digestive system organ or structure following other procedure; N20.0 Calculus of kidney; I12.9 Hypertensive chronic kidney disease with stage 1 through stage 4 chronic kidney disease, or unspecified chronic kidney disease; N18.9 Chronic kidney disease, unspecified; I25.10 Atherosclerotic heart disease of native coronary artery without angina pectoris; E78.5 Hyperlipidemia, unspecified; K21.9 Gastro-esophageal reflux disease without esophagitis; M19.90 Unspecified osteoarthritis, unspecified site; D72.829 Elevated white blood cell count, unspecified; K59.00 Constipation, unspecified; Z79.02 Long term (current) use of antithrombotics/antiplatelets; Y83.8 Other surgical procedures as the cause of abnormal reaction of the patient, or of later complication, without mention of misadventure at the time of the procedure; Y92.234 Operating room of hospital as the place of occurrence of the external cause
CPT/HCPCS: 36415; 50590; 74018; 74176; 80048; 81001; 85014; 85018; 85025; 85027; 85384; 85610; 85730; 86850; 86900; 86920; 97139; G0378; J0696; J1100; J1885; J1940; J2001; J2250; J2270; J2405; J2550; J7030; J7050; P9016; P9034

== ENCOUNTER → 2018-01-18 | Outpatient (CLI) | payer MEDICARE, OTHER ==
--- NOTE | 2018-01-18 13:09 | Diagnostic Imaging Report ---
EXAM: CT Abdomen and Pelvis WITHOUT contrast COMPARISON: CT Abdomen/Pelvis 12/26/2017. TECHNIQUE: Abdomen and pelvis were scanned utilizing a multidetector helical scanner from the lung base to the pubic symphysis without administration of IV contrast. Absence of intravenous contrast decreases sensitivity for detection of focal lesions and vascular pathology. Coronal and sagittal reformations were obtained. Routine protocol was performed. IV CONTRAST: None ORAL CONTRAST: Water COMPLICATIONS: None RADIATION DOSE: Total DLP: 804.6 mGy*cm Estimated effective dose: (DLP x 0.015 x size factor) mSv CTDIvol has been reviewed. It is below the limits set by the Radiation Protocol Committee (RPC). FINDINGS: LINES and TUBES: None. LOWER THORAX: Patchy dependent right lower lobe subsegmental atelectasis. Coronary artery calcifications. HEPATOBILIARY: Right hepatic lobe cyst. Additional subcentimeter hypodensities are too small to characterize, but likely represent cysts. No biliary ductal dilation. GALLBLADDER: No radio-opaque stones or sludge. No wall thickening. SPLEEN: No splenomegaly. PANCREAS: Atrophic. ADRENALS: No adrenal nodules KIDNEYS/URETERS: No hydronephrosis. Stable 0.9 cm hyperattenuating lesion in the superior pole of the left kidney. Again noted is a 1.5 cm left superior pole cyst. Stable left inferior pole 1.1 cm stone. Stable 1.3 cm stone in the right inferior pole and 0.8 cm calculus in the right superior pole. Interval decrease in size of a right subcapsular hematoma with compression of the right kidney and surrounding retroperitoneal components. The subcapsular hematoma has slightly decreased in size and measures approximately 8.4 x 4.3 x 10.8 cm (previously 10.7 x 4.8 x 15.6 cm). The more inferior extracapsular component has slightly decreased in size measures 6.8 x 3 x 5.5 cm, previously 8.7 x 4.5 x 7.6 cm. The hematomas are more isodense, reflecting evolution of hemorrhagic products. No new hemorrhage identified. GI TRACT: No abnormal distention, wall thickening, or evidence of bowel obstruction. PELVIC ORGANS/BLADDER: Unremarkable. Interval decrease in hemorrhagic products in the pelvis. LYMPH NODES: No lymphadenopathy. VESSELS: There is mild atherosclerotic disease in the aorta and major arterial branches. PERITONEUM / RETROPERITONEUM: No free air. Hemorrhage as above. BONES: Unremarkable. SOFT TISSUES: No acute bony abnormality. IMPRESSION: Status post lithotripsy of the right kidney with interval decrease in size and evolution of large right subcapsular / retroperitoneal hematoma. Unchanged appearance of right sided non-obstructing renal stones. Stable indeterminate lesion in the left kidney. Signed by: Dr. Len Lora MD on 01/18/2018 1:06 PM
== END ==
LOC: CT 09:40
PROVIDERS: ATTEND Urology
DX: N20.0 Calculus of kidney (principal)
CPT/HCPCS: 74176

== ENCOUNTER → 2018-03-04 | Outpatient (CLI) | payer MEDICARE, OTHER ==
--- NOTE | 2018-03-04 15:49 | Diagnostic Imaging Report ---
Parathyroid Scan with SPECT Reason for exam: Hyperparathyroidism Radiopharmaceutical: Tc-99m sestamibi 26.6 mCi After intravenous administration of the radiopharmaceutical, immediate and 2-hour planar images of the neck and upper chest were obtained. Tomographic images of the neck and upper chest were also obtained following the initial planar images. Distribution of tracer activity appears physiologic throughout the neck and upper chest on the planar and tomographic images. No focal areas of increased tracer accumulation are identified. On the delayed planar images, washout of tracer from the thyroid is complete with no focal areas of persistent tracer activity. Impression: Negative parathyroid scan No enlarged hypermetabolic parathyroid glands are identified. Signed by: Dr. Sonja Temple M.D. on 03/04/2018 3:46 PM
== END ==
LOC: NM 11:59
PROVIDERS: ATTEND Urology
DX: E21.3 Hyperparathyroidism, unspecified (principal)
CPT/HCPCS: 78071; A9500